=== PATIENT | male | born 1995 | race Two or more races ===

== ENCOUNTER 2019-10-09 14:52 | Emergency (ER) | payer BC ==
[~2019-10-09] VITALS: Ht 182.9 cm; Wt 83.9 kg
[2019-10-09 20:58] VITALS: BP 125/79
[2019-10-09] MEDS ORDERED: cefTRIAXone 1GM/50ML D5W 50 ML IV ONE (21:45)
[2019-10-09] MEDS ORDERED: LIDOCAINE 1% HCL (LOCAL ANESTH.) INJ 20ML MDV ID ONE (21:45)
[2019-10-09] MEDS ORDERED: cefTRIAXone SOD 1,000 MG VL IM ONE (22:00)
== END 2019-10-09 22:16 | disposition home or self-care (01) ==
LOC: ER 14:52
DX: S62.617B Displaced fracture of proximal phalanx of left little finger, initial encounter for open fracture (principal); X58.XXXA Exposure to other specified factors, initial encounter; Y93.89 Activity, other specified; Y92.89 Other specified places as the place of occurrence of the external cause; Y99.8 Other external cause status
CPT/HCPCS: 26735; 73140; 96372; 99285; J0696; J2001